=== PATIENT | male | born 1970 | race African-American/Black ===

== ENCOUNTER 2016-04-03 11:38 | Emergency (ER) | payer OTHER ==
[~2016-04-03] VITALS: Ht 165.1 cm; Wt 113.4 kg
[2016-04-03] MEDS ORDERED: FLEXERIL PO (13:16)
[2016-04-03] MEDS ORDERED: MOBIC15 MG PO (13:16)
[2016-04-03 13:34] VITALS: BP 159/92
== END 2016-04-03 13:35 | disposition home or self-care (01) ==
LOC: ER 11:38
DX: S16.1XXA Strain of muscle, fascia and tendon at neck level, initial encounter (principal); I10 Essential (primary) hypertension; E11.9 Type 2 diabetes mellitus without complications; V89.2XXA Person injured in unspecified motor-vehicle accident, traffic, initial encounter; Y93.89 Activity, other specified; Y92.89 Other specified places as the place of occurrence of the external cause; Y99.8 Other external cause status